=== PATIENT | male | born 1975 | race Caucasian/White ===

== ENCOUNTER 2016-06-16 17:24 | Emergency (ER) | payer OTHER ==
[2016-06-16 20:46] VITALS: BP 143/88
--- NOTE | 2016-06-21 09:41 | ED ---
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 States immediate onset of pain lasting 10-20 minutes. Full ROM, no numbness or tingling in arm or hand, pulses OK, small abrasion over left elbow, no ecchymosis. Able to fully extend and flex, supinate and pronate without pain. - History of Current Complaint Chief Complaint: EDExtremityUpper Stated Complaint: LEFT ARM INJURY-WC Time Seen by Provider: 06/16/16 18:57 Hx Obtained From: Patient Mechanism Of Injury: Direct Blow Onset/Duration: Started Hours Ago Timing: Intermittent Severity Initially: Mild Severity Currently: Mild Pain Location: Elbow Character: Aching Aggravating Factor(s): Nothing Alleviating Factor(s): Nothing Associated Signs & Symptoms: Positive: Negative, Other - small abrasion over posterior elbow Related History: Occupational Injury - Risk Factors Non-Orthopedic Risk Factor: Negative DVT Risk Factors: Negative Septic Arthritis Risk Factor: Negative - Allergies/Home Medications Allergies/Adverse Reactions: Allergies Allergy/AdvReac Type Severity Reaction Status Date / Time No Known Allergies Allergy Verified 06/16/16 17:26 PMH/Surg Hx/FS Hx/Imm Hx Previously Healthy: Yes Infectious Disease History: No Infectious Disease History: Denies: Traveled Outside the [place] in Last 30 Days - Social History Occupation: Employed Full-time Lives: With Family Alcohol Use: Occasionally Hx Substance Use: No Substance Use Type: Reports: None Hx Tobacco Use: No Smoking Status (MU): Unknown if Ever Smoked Do You Chew or Dip Tobacco: No Review of Systems Constitutional: Negative Eyes: Negative Cardiovascular: Negative Respiratory: Negative Musculoskeletal: Negative Positive: Other - no edema, arthralgia or pain over joint Positive: Other - small abrasion to left posterior elbow Neurological: Negative Psychological: Normal All Other Systems Reviewed And Are Negative: Yes Physical Exam Triage Information Reviewed: Yes Vital Signs On Initial Exam: Initial Vitals Temp Pulse Resp BP Pulse Ox 98.1 F 76 16 148/96 99 06/16/16 17:26 06/16/16 17:26 06/16/16 17:26 06/16/16 17:26 06/16/16 17:26 Vital Signs Reviewed: Yes Appearance: Positive: Well-Appearing, No Pain Distress, Well-Nourished Skin: Positive: Warm, Skin Color Reflects Adequate Perfusion, Other - small abrasion over L posterior elbow Head/Face: Positive: Normal Head/Face Inspection Eyes: Positive: Normal, EOMI, Conjunctiva Clear ENT: Positive: Hearing grossly normal Neck: Positive: Nontender, No Lymphadenopathy Respiratory/Lung Sounds: Positive: Clear to Auscultation, Breath Sounds Present Cardiovascular: Positive: Normal Musculoskeletal: Positive: Normal AVPU Assessment: Alert Diagnostics - Vital Signs Vital Signs Temp Pulse Resp BP Pulse Ox 06/16/16 20:45 75 16 143/88 06/16/16 17:26 98.1 F 76 16 148/96 99 - Laboratory Lab Statement: Any lab studies that have been ordered have been reviewed, and results considered in the medical decision making process. Course/Dx - Course Course Of Treatment: Physical exam performed. patient in no pain. Full ROM noted. Encouraged to take iburprofen as needed for any discomfort and follow up with PCP if experience any pain or decreased ROM. - Diagnoses Differential Diagnosis/HQI/PQRI: Positive: Contusion, Fracture (Closed), Strain Provider Diagnoses: Left elbow pain Discharge - Discharge Plan Condition: Stable Disposition: HOME Forms: *Work Release Referrals: Bob JUSTIN,Riley Corrales [Primary Care Provider] - Additional Instructions: Ibuprofen 600mg three times daily as needed for pain.
== END 2016-06-16 20:45 | disposition home or self-care (01) ==
LOC: ED 17:24
DX: M25.522 Pain in left elbow (principal)
CPT/HCPCS: 99281